=== PATIENT | female | born 1935 | race Caucasian/White ===

== ENCOUNTER 2016-11-30 04:49 | Emergency (ER) | payer BC ==
[~2016-11-30] VITALS: Ht 142.2 cm; Wt 56.4 kg
[~2016-11-30 04:49] MED LIST: BIOT1CAP3 PO; CALC-20 PO; CARV3.122 PO; CHOL20007 PO; CYAN500T13 PO; LEVO88TA PO; LISI10TA PO; MULT-513 PO; OMEG1CAP81 PO; PANT40TA PO; POTA99TA PO; PYRI100T4 PO; TRAV0.00 OPB
[2016-11-30 04:52] VITALS: TEMP 36.9; Ht 142.2 cm; Wt 56.4 kg
--- NOTE | 2016-11-30 06:00 | EMERGENCY ROOM VISIT NOTE ---
History First contact with patient: 04:59 Chief Complaint: ED VAG BLEEDING Stated Complaint: VAGINAL BLEEDING History of Present Illness The patient is a 81 year old female who presents to the Emergency Room with complaints of vaginal bleeding She woke up 2 hours ago with underwear soaked in dark red blood, although she denies any clots She says she has no concurrent abdominal pain or cramping. She denies trauma to the area and says she has not had penetration in years She has had intermittent cramping for the last few months. An ultrasound done in May 2016 showed endometrial thickening, as per patient She has had no bleeding or spotting since end of menopause. Two days ago, she read that aspirin was recommended for everyone great than 50 years of age, so commenced taking baby aspirin 81mg yesterday. She is not on any other anti-platelet/anti-coagulant medication: Was on Xarelto for 2 separate 3-month periods (for DVT), but this was last taken more than 6months ago She has been having altered bowel movements - constipation altered with soft stools for the last 2-3 weeks, but denies melena or solange red blood in stool No UTI symptoms although sometimes she has some urinary retention. No hematuria Patient is thalassemia minor (baseline hemoglobin ~9-10) No history of gyne issues: no fibroids, no endometriosis, cysts No breast, ovarian, uterine cancer history in self or family Last colonoscopy was 11 years ago. Colorectal resection with colostomy bag in situ for the last 6 years. Endoscopy performed 2 weeks ago - was normal Doppler U/S of both legs performed 2 weeks because of leg swelling - negative for further clots Review of Systems See HPI for pertinent positives and negatives. A total of ten systems were reviewed and were otherwise negative. 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 Family History Cancer FH: HTN (hypertension) FH: diabetes mellitus FH: heart disease FH: lung disease Social History Smoking Status: Never Smoker Alcohol Use: none Drug Use: none Marital Status: Occupation Status: retired Current/Historical Medications Scheduled Biotin (Biotin), 5,000 MCG PO DAILY Calcium Carbonate-Vitamin D (Calcium 600 + D), 1 TABS PO DAILY Carvedilol (Coreg), 3.125 MG PO BID Cholecalciferol (Vitamin D3), 2,000 UNIT PO DAILY Cyanocobalamin (Vitamin B12 500MCG), 1,500 MCG PO DAILY Levothyroxine Sodium (Synthroid), 88 MCG PO DAILY Lisinopril (Prinivil), 10 MG PO BID Multivitamins/Minerals (Mvi With Minerals), 1 TAB PO DAILY Pantoprazole (Protonix), 40 MG PO DAILY Potassium (Potassium), 99 MG PO DAILY Pyridoxine (Vitamin B6), 100 MG PO DAILY Travoprost (Travatan Z), 1 DROP OPB HS Allergies Coded Allergies: No Known Allergies (Verified , 06/01/16) Physical Exam Vital Signs Date Time Temp Pulse Resp B/P Pulse Ox O2 Delivery O2 Flow Rate FiO2 11/30/16 06:35 97 18 174/69 96 Room Air 11/30/16 04:52 36.9 108 18 194/82 95 Room Air Physical Exam GENERAL: alert, well appearing, thin, sitting in bed, no acute distress, non- toxic HEAD: Normocephalic, atraumatic. No sinus tenderness. EYES: PERRL, EOMI, normal conjunctiva OROPHARYNX: no exudate, no erythema, lips, buccal mucosa, and tongue normal and mucous membranes are moist NECK: supple, no nuchal rigidity, no adenopathy, non-tender LUNGS: Clear to auscultation. Normal chest wall mechanics, good air entry. No crepitations, crackles, or wheezes HEART: no murmurs, S1 normal and S2 normal CHEST: No reproducible tenderness. ABDOMEN: abdomen soft, non-tender, normo-active bowel sounds, no masses, no rebound or guarding. PELVIC: Painful insertion of speculum. Superficial vaginal wall laceration seen near vaginal entrance and one internally. No active bleeding noted. Some brownish discharge in vaginal vault. BACK: Back is symmetrical on inspection, no deformities, no midline tenderness, no CVA tenderness. SKIN: Warm, pink, dry. No erythema, rashes, or bruising. EXTREMITIES: Grossly normal. Moving all 4 limbs, strength 5/5. No pitting edema. Calves non tender. NEURO: Alert, Ox3. No focal deficits. Normal sensorium, cranial nerves II-XII grossly intact, normal speech. PSYCH: Mood and affect appropriate. Medical Decision & Procedures ER Provider Diagnostic Interpretation: PELVIC ULTRASOUND CLINICAL HISTORY: Vaginal bleeding. COMPARISON STUDY: CT of the abdomen and pelvis June 01, 2016 and pelvic ultrasound August 01, 2016. FINDINGS: The uterus measures 8.7 x 5.2 x 5.8 cm. There is extensive complex material within the endometrial cavity. In addition, there is an associated 2.1 x 1.5 x 2 cm mass within the endometrial cavity which contains color flow. In addition, there is a moderate amount of complex fluid within the pelvis. Neither ovary was visualized. IMPRESSION: 1. Distended endometrial cavity which contains complex fluid and an associated 2.1 cm endometrial mass which is worrisome for endometrial carcinoma. However, a polyp could appear similar. Gynecologic consultation is recommended. 2. Moderate amount of complex fluid within the pelvis. This fluid is entirely nonspecific and hemoperitoneum cannot be excluded. A CT of the abdomen and pelvis could be obtained for further evaluation. 3. Nonvisualization of the ovaries. Laboratory Results 11/30/16 06:05 Red Blood Count 4.99, Mean Corpuscular Volume 60.5, Mean Corpuscular Hemoglobin 18.6, Mean Corpuscular Hemoglobin Concent 30.8, Mean Platelet Volume 9.5, Neutrophils (%) (Auto) 64.8, Lymphocytes (%) (Auto) 19.6, Monocytes (%) (Auto) 8.0, Eosinophils (%) (Auto) 6.9, Basophils (%) (Auto) 0.4, Neutrophils # (Auto) 4.53, Lymphocytes # (Auto) 1.37, Monocytes # (Auto) 0.56, Eosinophils # (Auto) 0.48, Basophils # (Auto) 0.03 11/30/16 06:05 Test 11/30/16 06:05 White Blood Count 6.99 K/uL (4.8-10.8) Red Blood Count 4.99 M/uL (4.2-5.4) Hemoglobin 9.3 g/dL (12.0-16.0) Hematocrit 30.2 % (37-47) Mean Corpuscular Volume 60.5 fL (80-100) Mean Corpuscular Hemoglobin 18.6 pg (25-34) Mean Corpuscular Hemoglobin Concent 30.8 g/dl (32-36) Platelet Count 375 K/uL (130-400) Mean Platelet Volume 9.5 fL (7.4-10.4) Neutrophils (%) (Auto) 64.8 % Lymphocytes (%) (Auto) 19.6 % Monocytes (%) (Auto) 8.0 % Eosinophils (%) (Auto) 6.9 % Basophils (%) (Auto) 0.4 % Neutrophils # (Auto) 4.53 K/uL (1.4-6.5) Lymphocytes # (Auto) 1.37 K/uL (1.2-3.4) Monocytes # (Auto) 0.56 K/uL (0.11-0.59) Eosinophils # (Auto) 0.48 K/uL (0-0.5) Basophils # (Auto) 0.03 K/uL (0-0.2) RDW Standard Deviation 32.3 fL (36.4-46.3) RDW Coefficient of Variation 14.8 % (11.5-14.5) Immature Granulocyte % (Auto) 0.3 % Immature Granulocyte # (Auto) 0.02 K/uL (0.00-0.02) Polychromasia 1+ Ovalocytes 1+ Prothrombin Time 10.3 SECONDS (9.0-12.0) Prothromb Time International Ratio 1.0 (0.9-1.1) Activated Partial Thromboplast Time 26.0 SECONDS (21.0-31.0) Partial Thromboplastin Ratio 1.0 Anion Gap 10.0 mmol/L (3-11) Est Creatinine Clear Calc Drug Dose 31.1 ml/min Estimated GFR () 63.4 Estimated GFR (Non- 54.7 BUN/Creatinine Ratio 16.3 (10-20) Calcium Level 8.8 mg/dl (8.5-10.1) Medications Administered Medications (Trade) Dose Ordered Sig/Blanquita Route Start Time Stop Time Status Last Admin Dose Admin Morphine Sulfate (MoRPHine SULFATE INJ) 2 mg NOW STAT IV 11/30/16 06:24 11/30/16 06:26 DC 11/30/16 06:41 2 MG Ondansetron HCl (Zofran Inj) 2 mg NOW STAT IV 11/30/16 06:24 11/30/16 06:26 DC 11/30/16 06:41 2 MG Medical Decision 81 year old female presented with vaginal bleeding The patient was evaluated in room B3. A complete history and physical exam was performed. Etiologies such as dysfunction uterine bleeding, bleeding dyscrasia, trauma, infection, as well as others were entertained. Lab work was performed. CBC showed anemia which was consistent with patient's baseline anemia secondary to thalassemia minor. BMP and coagulation profile were all within normal limits. A speculum exam was performed which showed some superficial vaginal lacerations but no active bleeding was noted, from either the lacerations or cervical os. A transvaginal U/S was ordered and the patient was given 2mg IV morphine and 2mg IV Zofran for symptom relief prior. The U/S reported a distended endometrial cavity containing complex fluid and an associated 2.1 cm endometrial mass, worrisome for endometrial carcinoma or possibly a polyp. It also shows a moderate amount of complex fluid (nonspecific , possibly hemoperitoneum) within the pelvis. Dr. Knight, the radiologist who read the report was called to discuss the findings and he recommended a non-contrast CT abdo/pelvis for further evaluation. The CT abdo/pelvis report is pending at this current time. Care will be handed over to ED attending Dr. Zhong. Please see his notes for ongoing care management. Departure Information Referrals Erick Stewart M.D. (PCP) Patient Instructions A Signature Page, My [facility]
[2016-11-30 06:23] LABS: BASO % 0.4 %; BASO ABS # 0.03 K/uL (0-0.2); EOS % 6.9 %; HEMATOCRIT 30.2 % (37-47); IG% 0.3 %; LYMPH % 19.6 %; LYMPH ABS # 1.37 K/uL (1.2-3.4); MEAN CELL VOLUME 60.5 fL (80-100); MEAN CORPUSCULAR HEMOGLOBIN 18.6 pg (25-34); MEAN CORPUSCULAR HGB CONC 30.8 g/dl (32-36); MEAN PLATELET VOLUME 9.5 fL (7.4-10.4); NEUT % 64.8 %; PLATELET COUNT 375 K/uL (130-400); RED BLOOD COUNT 4.99 M/uL (4.2-5.4); WHITE BLOOD COUNT 6.99 K/uL (4.8-10.8)
[2016-11-30] MEDS ORDERED: MoRPHine SULFATE 2 MG/ML CARP IV STA (06:24)
[2016-11-30] MEDS ORDERED: ONDANSETRON INJ 2 MG/ML 2 ML VIAL IV STA (06:24)
--- NOTE | 2016-11-30 06:28 | EMERGENCY ROOM VISIT NOTE ---
ED Visit Note First contact with patient: 04:59 Resident Physician Supervision Note: I interviewed and examined the patient. Discussed with Dr. Emmanuel and agree with findings and plan as documented in the note. The patient will undergo a pelvic exam to ensure that the blood is vaginal. At that time, the patient will go for a pelvic ultrasound to look at the uterus. She had a previous abdominal ultrasound approximately 7 months ago which we will use for comparison. Documented By: Maritza Conway
[2016-11-30 06:38] LABS: PROTHROMBIN TIME (PATIENT) 10.3 SECONDS (9.0-12.0)
[2016-11-30 06:45] LABS: BUN/CREATININE RATIO 16.3 (10-20); CALCIUM 8.8 mg/dl (8.5-10.1); CREATININE 0.96 mg/dl (0.60-1.20)
[2016-11-30 06:55] LABS: COMPLETE YES; OVALOCYTES 1+; POLYCHROMASIA 1+
--- NOTE | 2016-11-30 07:42 | DIAGNOSTIC IMAGING REPORT ---
PELVIC ULTRASOUND CLINICAL HISTORY: Vaginal bleeding. COMPARISON STUDY: CT of the abdomen and pelvis June 01, 2016 and pelvic ultrasound August 01, 2016. FINDINGS: The uterus measures 8.7 x 5.2 x 5.8 cm. There is extensive complex material within the endometrial cavity. In addition, there is an associated 2.1 x 1.5 x 2 cm mass within the endometrial cavity which contains color flow. In addition, there is a moderate amount of complex fluid within the pelvis. Neither ovary was visualized. IMPRESSION: 1. Distended endometrial cavity which contains complex fluid and an associated 2.1 cm endometrial mass which is worrisome for endometrial carcinoma. However, a polyp could appear similar. Gynecologic consultation is recommended. 2. Moderate amount of complex fluid within the pelvis. This fluid is entirely nonspecific and hemoperitoneum cannot be excluded. A CT of the abdomen and pelvis could be obtained for further evaluation. 3. Nonvisualization of the ovaries. Electronically signed by: Kendall Knight M.D. 11/30/2016 7:40 AM Dictated Date/Time: 11/30/2016 7:36 AM
--- NOTE | 2016-11-30 09:01 | DIAGNOSTIC IMAGING REPORT ---
CT OF THE ABDOMEN AND PELVIS WITHOUT CONTRAST CLINICAL HISTORY: Vaginal bleeding. Pelvic fluid. COMPARISON STUDY: CT of the abdomen and pelvis June 01, 2016 and pelvic ultrasound performed earlier today. TECHNIQUE: Axial images of the abdomen and pelvis were obtained without IV contrast. Images were reviewed in the axial, sagittal, and coronal planes. FINDINGS: Visualized portions of the lower chest demonstrate a trace right pleural effusion. There is a small amount of abdominal and pelvic ascites which measures just above water attenuation. A hepatic cyst is again noted. Evaluation of the abdomen and pelvis is suboptimal on this unenhanced exam. Unenhanced images of the spleen, adrenal glands, kidneys and pancreas are normal. There has- been significant progression of lymphadenopathy since CT of June 01, 2016. An index right cardiophrenic angle node measures 1.2 cm in short axis diameter. Multiple para-aortic and iliac chain lymph nodes have increased in size. An index left common iliac node measures 2.2 x 1.3 cm. Omental nodules are noted. These could reflect lymph nodes or omental implants. There is no evidence for a bowel obstruction. A left lower quadrant and colostomy with associated parastomal hernia is again noted. This contains multiple small bowel loops. There is uterine enlargement with distention of the endometrial cavity, as shown on ultrasound. In addition, there is a low-attenuation lobulated masslike abnormality posterior to the uterus and anterior to the sacrum that measures 10 x 7.8 x 2.6 cm. This measures just above water attenuation. There is no fat plane between this abnormality and the uterus. This is within the subcutaneous tissues of the medial gluteal folds. This was not present on prior CT. No suspicious osseous lesions are present. Bilateral sacral fractures and right pubic ring fractures are noted. Deformity of the sacrum or coccyx is unchanged. IMPRESSION: 1. Significant progression of endometrial thickening with a distended endometrial cavity since CT of June 01, 2016. This is better depicted on pelvic ultrasound performed earlier today. The findings suggest a neoplastic process such as endometrial carcinoma. Gynecologic consultation is recommended. 2. Progression of abdominal and pelvic lymphadenopathy which is worrisome for an spread of disease. Omental nodules raise the possibility of peritoneal spread of disease although several of these nodules may reflect lymph nodes. Small amount of abdominal and pelvic ascites which does not appear to represent hemorrhage. 3. Lobulated low-attenuation midline mass-like abnormality projecting over the medial gluteal fold, posterior to the uterus and inferior to the sacrum and coccyx. No fat plane between this abnormality and the uterus. This is new since prior CT. This finding is indeterminate and this appears to represent a complex loculated fluid collection. Although unusual, this could be related to the suspected uterine malignancy. Differential considerations include neoplastic or less likely infectious etiology. Electronically signed by: Kendall Knight M.D. 11/30/2016 8:59 AM Dictated Date/Time: 11/30/2016 8:32 AM
--- NOTE | 2016-11-30 09:51 | EMERGENCY ROOM VISIT NOTE ---
ED Visit Note First contact with patient: 07:45 81-year-old female with abdominal pain and some bleeding was fully evaluated by Dr. Emmanuel and Dr. Conway. I assumed care at change of shift. The CT and ultrasound were evaluated. Patient most likely has endometrial carcinoma. I discussed care with Dr. Kary Shepard over the phone. The patient will be further evaluated as an outpatient and most likely have a biopsy within the next week. This was discussed with the patient and 2 other family members. Impression: Vaginal Bleeding
[2016-11-30 10:13] VITALS: BP 149/71; PULSE 100; O2SAT 96
== END 2016-11-30 10:15 | disposition home or self-care (01) ==
LOC: C.EDB 04:50
DX: N93.9 Abnormal uterine and vaginal bleeding, unspecified (principal); Z85.038 Personal history of other malignant neoplasm of large intestine; Z79.899 Other long term (current) drug therapy; Z93.3 Colostomy status; Z80.9 Family history of malignant neoplasm, unspecified; Z82.49 Family history of ischemic heart disease and other diseases of the circulatory system; Z83.3 Family history of diabetes mellitus

== ENCOUNTER → 2016-12-03 | Outpatient (CLI) | payer BC ==
[~2016-12-03] MED LIST changes: -OMEG1CAP81 PO
== END | disposition home or self-care (01) ==
LOC: C.PATHSPEC 14:30
PROVIDERS: ATTEND Obstetrics & Gynecology
DX: N95.0 Postmenopausal bleeding (principal)

== ENCOUNTER → 2016-12-26 | Outpatient (CLI) | payer BC ==
--- NOTE | 2016-12-26 18:32 | DIAGNOSTIC IMAGING REPORT ---
BILATERAL LOWER EXTREMITY VENOUS DOPPLER HISTORY: Bilateral leg swelling COMPARISON STUDY: None. FINDINGS: There is normal compressibility, flow, and augmentation within the bilateral lower extremity deep venous systems. IMPRESSION: No DVT within the right or left lower extremity. Electronically signed by: Angel Noyola M.D. 12/26/2016 6:30 PM Dictated Date/Time: 12/26/2016 6:30 PM
[2016-12-26 18:45] LABS: BASO % 0.5 %; BASO ABS # 0.03 K/uL (0-0.2); EOS % 5.1 %; HEMATOCRIT 30.4 % (37-47); IG% 0.2 %; LYMPH % 23.4 %; MEAN CELL VOLUME 58.9 fL (80-100); MEAN CORPUSCULAR HEMOGLOBIN 18.4 pg (25-34); MEAN CORPUSCULAR HGB CONC 31.3 g/dl (32-36); MEAN PLATELET VOLUME 9.3 fL (7.4-10.4); MONO % 10.3 %; NEUT % 60.5 %; PLATELET COUNT 394 K/uL (130-400); RED BLOOD COUNT 5.16 M/uL (4.2-5.4); WHITE BLOOD COUNT 6.41 K/uL (4.8-10.8)
[2016-12-26 19:12] LABS: ALT/SGPT 14 U/L (12-78); AMYLASE 74 U/L (25-115); BLOOD UREA NITROGEN 20 mg/dl (7-18); BUN/CREATININE RATIO 17.8 (10-20); CALCIUM 8.4 mg/dl (8.5-10.1); CARBON DIOXIDE 23 mmol/L (21-32); CHLORIDE 105 mmol/L (98-107); GLUCOSE 99 mg/dl (70-99); POTASSIUM 3.8 mmol/L (3.5-5.1); SODIUM 139 mmol/L (136-145)
[2016-12-26 19:15] LABS: ALB/GLOB RATIO 0.6 (0.9-2); ALKALINE PHOSPHATASE 92 U/L (45-117); AST/SGOT 14 U/L (15-37)
[2016-12-26 20:26] LABS: COMPLETE YES; HYPOCHROMIA PRESENT; MICROCYTOSIS PRESENT
--- NOTE | 2016-12-30 12:54 | CODING QUERY MEDICAL NECESSITY ---
SUPPORTING DIAGNOSIS NEEDED A supporting diagnosis is required for the test/procedure performed on this patient in order for us to be reimbursed by the patient's insurance. Please provide a supporting diagnosis for the following test/procedure listed below next to the test name along with your signature. *If there is no additional diagnosis for this patient that would support the following test/procedure please document that below next to the test/procedure. Test(s)/Procedure(s) that require a supporting diagnosis: * VENOUS DOPPLER LOWER EXTREMITY DIAGNOSIS: * DOS: 12/26/16 Provider Signature: Date: Thank you [facility] Information Management Once completed, please kindly fax back to [phone] For questions please call [phone]
== END | disposition home or self-care (01) ==
LOC: C.ULTR 17:53
PROVIDERS: ATTEND Family Medicine
DX: R10.9 Unspecified abdominal pain (principal); M79.89 Other specified soft tissue disorders

== ENCOUNTER → 2016-12-27 | Outpatient (CLI) | payer BC ==
--- NOTE | 2016-12-27 09:01 | DIAGNOSTIC IMAGING REPORT ---
ABDOMINAL ULTRASOUND, RIGHT UPPER QUADRANT HISTORY: Right upper quadrant abdominal pain.. COMPARISON: Abdominal ultrasound 10/03/2016. Abdomen and pelvis CT 11/30/2016. FINDINGS: Pancreas: Obscured by overlying bowel gas. Liver: No hepatic masses or intrapelvic bile duct dilatation. The right hepatic dome hypodense lesion seen on the prior study was not clearly identified. Perihepatic ascites persists. Gallbladder: Gallbladder wall top normal in thickness. No gallstones. CBD: 5 mm. Right kidney: No hydronephrosis. IMPRESSION: 1. Gallbladder wall is top normal in thickness. No gallstones. 2. Persistent perihepatic ascites. Electronically signed by: Angel Noyola M.D. 12/27/2016 9:00 AM Dictated Date/Time: 12/27/2016 8:57 AM
== END | disposition home or self-care (01) ==
LOC: C.ULTR 08:24
PROVIDERS: ATTEND Family Medicine
DX: R10.11 Right upper quadrant pain (principal); R18.8 Other ascites

== ENCOUNTER → 2017-01-01 | Outpatient (CLI) | payer BC | END | disposition home or self-care (01) | LOC: C.LAB 12:08 | PROVIDERS: ATTEND Internal Medicine Hematology | DX: C20 Malignant neoplasm of rectum (principal); C55 Malignant neoplasm of uterus, part unspecified ==

== ENCOUNTER → 2017-01-15 | Outpatient (CLI) | payer BC ==
[2017-01-15 17:49] LABS: BLOOD UREA NITROGEN 18 mg/dl (7-18); BUN/CREATININE RATIO 16.8 (10-20)
== END | disposition home or self-care (01) ==
LOC: C.LABBC 14:44
PROVIDERS: ATTEND Urology
DX: R33.9 Retention of urine, unspecified (principal)

== ENCOUNTER 2017-01-19 15:30 | Inpatient (IN) | payer BC, OTHER ==
[~2017-01-19] VITALS: Ht 142.2 cm; Wt 56.5 kg
[2017-01-19] MEDS ORDERED: SODIUM CHLORIDE 0.9% 1000ML 1,000 ML IV STA (16:32)
[2017-01-19] MEDS ORDERED: SODIUM CHLORIDE 0.9% 500ML 500 ML IV STA (17:10)
[2017-01-19 17:34] LABS: BASO % 0.3 %; BASO ABS # 0.02 K/uL (0-0.2); EOS % 0.9 %; HEMATOCRIT 29.5 % (37-47); IG% 0.3 %; LYMPH % 18.3 %; LYMPH ABS # 1.24 K/uL (1.2-3.4); MEAN CELL VOLUME 56.6 fL (80-100); MEAN CORPUSCULAR HGB CONC 31.9 g/dl (32-36); MEAN PLATELET VOLUME 8.9 fL (7.4-10.4); MONO % 7.8 %; NEUT % 72.4 %; PLATELET COUNT 465 K/uL (130-400); RED BLOOD COUNT 5.21 M/uL (4.2-5.4); WHITE BLOOD COUNT 6.76 K/uL (4.8-10.8)
[2017-01-19 17:44] LABS: PROTHROMBIN TIME (PATIENT) 11.1 SECONDS (9.0-12.0)
[2017-01-19 17:50] LABS: ALT/SGPT 12 U/L (12-78); AST/SGOT 16 U/L (15-37); BLOOD UREA NITROGEN 12 mg/dl (7-18); BUN/CREATININE RATIO 12.7 (10-20); CALCIUM 8.2 mg/dl (8.5-10.1); CARBON DIOXIDE 26 mmol/L (21-32); CHLORIDE 102 mmol/L (98-107); CREATININE 0.94 mg/dl (0.60-1.20); GLUCOSE 102 mg/dl (70-99); MAGNESIUM 1.8 mg/dl (1.8-2.4); POTASSIUM 3.8 mmol/L (3.5-5.1); SODIUM 138 mmol/L (136-145)
[2017-01-19 18:01] LABS: ALKALINE PHOSPHATASE 85 U/L (45-117)
--- NOTE | 2017-01-19 18:22 | DIAGNOSTIC IMAGING REPORT ---
CT OF THE ABDOMEN AND PELVIS WITHOUT CONTRAST CLINICAL HISTORY: Diffuse abdominal pain and vomiting. COMPARISON STUDY: CT of the abdomen and pelvis November 30, 2016. TECHNIQUE: Axial images of the abdomen and pelvis were obtained without IV contrast. Images were reviewed in the axial, sagittal, and coronal planes. FINDINGS: Visualized portions of the lower chest demonstrate increase in size of a moderate right pleural effusion. There is a small left pleural effusion. There are mildly enlarged bilateral internal mammary chain lymph nodes. Several cardiophrenic angle nodes have mildly increased in size since exam of November 30, 2016. A right hepatic lobe cyst is again noted. Evaluation of the abdomen and pelvis is suboptimal on this unenhanced exam. There is no pneumatosis, free air or portal venous gas. A moderate amount of ascites has increased since exam of April. Unenhanced images of the spleen, adrenal glands, kidneys and pancreas are unremarkable. There is no hydronephrosis. Multiple enlarged retroperitoneal lymph nodes have mildly increased in size since prior exam. An index left common iliac node measures 2.4 x 1.4 cm. This node previously measured 2.2 x 1.3 cm. A few mildly enlarged left a little lymph nodes have increased in size. A hypodense masslike abnormality posterior to the uterus and inferior to the sacrum and coccyx has increased in size since prior exam. This now measures approximately 8.4 x 5.6 cm. Endometrial thickening shown on prior exam is less conspicuous on this examination. There is mild small bowel dilatation. A left lower quadrant parastomal hernia containing ascites and bowel is noted but this does not result in the bowel dilatation. The findings suggest a partial small bowel obstruction. Peritoneal nodularity has increased since prior examination of November 30, 2016. Fractures of the bilateral sacral ala and right pubic ring are noted IMPRESSION: 1. Findings suggestive of progressive metastatic disease within the abdomen and pelvis, including peritoneal carcinomatosis and progression of lymphadenopathy since prior exam of April. Small to moderate ascites, increased since prior exam. 2. Mild dilatation of the proximal to mid small bowel. A definite transition point is not identified although the findings suggest a partial small bowel obstruction. 3. Moderate right and small left pleural effusions, increased since prior exam. 4. Increase in size of the hypodense mass-like abnormality, located inferior to the sacrum and coccyx and posterior to the uterus since prior CT. This finding is indeterminate although may reflect a neoplastic process. A fluid collection could appear similar. 5. Suboptimal evaluation of the abdomen and pelvis given the lack of IV and oral contrast. 6. Left lower quadrant parastomal hernia which does not result in the bowel obstruction. Electronically signed by: Kendall Knight M.D. 01/19/2017 6:21 PM Dictated Date/Time: 01/19/2017 6:04 PM
[2017-01-19 18:23] LABS: COMPLETE YES; HYPOCHROMIA PRESENT; MICROCYTOSIS PRESENT; OVALOCYTES 1+; POIKILOCYTOSIS PRESENT; POLYCHROMASIA 1+; SCHISTOCYTES OCCASIONAL
--- NOTE | 2017-01-19 18:24 | DIAGNOSTIC IMAGING REPORT ---
LEFT LOWER EXTREMITY VENOUS DOPPLER CLINICAL HISTORY: Left lower leg swelling. COMPARISON STUDY: Bilateral lower extremity venous Doppler December 26, 2016 TECHNIQUE: Sonography of the deep venous system of the left lower extremity was performed. Compression and augmentation were evaluated. FINDINGS: There is nonocclusive thrombus within the left common femoral vein as well as the left profunda vein. This was not evident on prior exam. No additional sites of deep venous thrombus were identified within the left lower extremity. Left lower extremity edema was noted. 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 Electronically signed by: Kendall Knight M.D. 01/19/2017 6:23 PM Dictated Date/Time: 01/19/2017 6:21 PM
[2017-01-19] MEDS ORDERED: ONDANSETRON 8 MG/54 ML D5W IV STA (18:35)
[2017-01-19 19:22] LABS: URINE APPEARANCE CLOUDY (CLEAR); URINE BILIRUBIN NEG (NEG); URINE COLOR YELLOW; URINE NITRITE NEG (NEG); URINE SPECIFIC GRAVITY 1.011 (1.000-1.030); UROBILINOGEN NEG (NEG)
[2017-01-19 19:23] LABS: MANUAL MICROSCOPIC REQUIRED? NO; REVIEW REQ? NO
--- NOTE | 2017-01-19 19:44 | EMERGENCY ROOM VISIT NOTE ---
History Report prepared by Raghavendra: Alecia Cortez Under the Supervision of: Dr. Elmer Dubon M.D. First contact with patient: 16:32 Chief Complaint: ABDOMINAL PAIN Stated Complaint: ABD PAIN,VOMITING Nursing Triage Summary: Abdominal pain, nausea, recent dx of uterine Ca per daughter. History of Present Illness The patient is a 81 year old female who presents to the Emergency Room with complaints of worsening intermittent abdominal pain beginning at 5am this morning. She rates her pain currently as a 3/10 in severity. The patient was recently diagnosed with uterine cancer. She notes that she has been experiencing abdominal pain for the past 2 months. The patient has also been experiencing decreased eating, nausea and shortness of breath. Pt denies LOC, headache, fevers, chills, diaphoresis, visual changes, neck pain, chest pain, breathing difficulties, vomiting, back pain, melena, hematochezia, urinary symptoms, numbness, weakness, lymphadenopathy, rash, or other complaints. Source of History: patient Onset: 5am this morning Position: abdomen Symptom Intensity: 3/10 Timing: intermittent, worsening Associated Symptoms: + SOB, + nausea Note: Patient is experiencing decreased appetite. Review of Systems See HPI for pertinent positives and negatives. A total of ten systems were reviewed and were otherwise negative. 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 Family History Cancer FH: HTN (hypertension) FH: diabetes mellitus FH: heart disease FH: lung disease Social History Smoking Status: Never Smoker Alcohol Use: none Drug Use: none Marital Status: Occupation Status: retired Current/Historical Medications Scheduled Biotin (Biotin), 5,000 MCG PO DAILY Calcium Carbonate-Vitamin D (Calcium 600 + D), 1 TABS PO DAILY Carvedilol (Coreg), 3.125 MG PO BID Cholecalciferol (Vitamin D3), 2,000 UNIT PO DAILY Cyanocobalamin (Vitamin B12 500MCG), 1,500 MCG PO DAILY Levothyroxine Sodium (Synthroid), 88 MCG PO DAILY Pantoprazole (Protonix), 40 MG PO DAILY Potassium (Potassium), 99 MG PO DAILY Pyridoxine (Vitamin B6), 100 MG PO DAILY Travoprost (Travatan Z), 1 DROP OPB HS Allergies Coded Allergies: No Known Allergies (Verified , 01/19/17) Physical Exam Vital Signs Date Time Temp Pulse Resp B/P Pulse Ox O2 Delivery O2 Flow Rate FiO2 01/19/17 22:39 87 01/19/17 21:05 93 20 166/97 93 Room Air 01/19/17 18:23 94 20 165/87 95 Room Air 01/19/17 17:20 93 01/19/17 17:15 Room Air 01/19/17 15:42 36.9 104 20 151/78 94 Room Air Physical Exam GENERAL: Awake, alert, tired appearing, in no distress HENT: Normocephalic, atraumatic. Oropharynx unremarkable. EYES: Normal conjunctiva. Sclera non-icteric. NECK: Supple. No nuchal rigidity. FROM. No JVD. RESPIRATORY: Clear to auscultation. CARDIAC: Borderline tachycardic rate, normal rhythm. Extremities warm and well perfused. Pulses equal. ABDOMEN: Soft, non-distended. No tenderness to palpation. No rebound or guarding. No masses. RECTAL: Deferred. MUSCULOSKELETAL: Chest examination reveals no tenderness. The back is symmetrical on inspection without obvious abnormality. There is no CVA tenderness to palpation. No joint edema. LOWER EXTREMITIES: Calves are equal size bilaterally and non-tender. 2+ edema. No discoloration. NEURO: Normal sensorium. No sensory or motor deficits noted. SKIN: No rash or jaundice noted. Medical Decision & Procedures ER Provider Diagnostic Interpretation: Radiology results as stated below per my review and radiologist interpretation CT OF THE ABDOMEN AND PELVIS WITHOUT CONTRAST CLINICAL HISTORY: Diffuse abdominal pain and vomiting. COMPARISON STUDY: CT of the abdomen and pelvis November 30, 2016. TECHNIQUE: Axial images of the abdomen and pelvis were obtained without IV contrast. Images were reviewed in the axial, sagittal, and coronal planes. FINDINGS: Visualized portions of the lower chest demonstrate increase in size of a moderate right pleural effusion. There is a small left pleural effusion. There are mildly enlarged bilateral internal mammary chain lymph nodes. Several cardiophrenic angle nodes have mildly increased in size since exam of November 30, 2016. A right hepatic lobe cyst is again noted. Evaluation of the abdomen and pelvis is suboptimal on this unenhanced exam. There is no pneumatosis, free air or portal venous gas. A moderate amount of ascites has increased since exam of April. Unenhanced images of the spleen, adrenal glands, kidneys and pancreas are unremarkable. There is no hydronephrosis. Multiple enlarged retroperitoneal lymph nodes have mildly increased in size since prior exam. An index left common iliac node measures 2.4 x 1.4 cm. This node previously measured 2.2 x 1.3 cm. A few mildly enlarged left a little lymph nodes have increased in size. A hypodense masslike abnormality posterior to the uterus and inferior to the sacrum and coccyx has increased in size since prior exam. This now measures approximately 8.4 x 5.6 cm. Endometrial thickening shown on prior exam is less conspicuous on this examination. There is mild small bowel dilatation. A left lower quadrant parastomal hernia containing ascites and bowel is noted but this does not result in the bowel dilatation. The findings suggest a partial small bowel obstruction. Peritoneal nodularity has increased since prior examination of November 30, 2016. Fractures of the bilateral sacral ala and right pubic ring are noted IMPRESSION: 1. Findings suggestive of progressive metastatic disease within the abdomen and pelvis, including peritoneal carcinomatosis and progression of lymphadenopathy since prior exam of April. Small to moderate ascites, increased since prior exam. 2. Mild dilatation of the proximal to mid small bowel. A definite transition point is not identified although the findings suggest a partial small bowel obstruction. 3. Moderate right and small left pleural effusions, increased since prior exam. 4. Increase in size of the hypodense mass-like abnormality, located inferior to the sacrum and coccyx and posterior to the uterus since prior CT. This finding is indeterminate although may reflect a neoplastic process. A fluid collection could appear similar. 5. Suboptimal evaluation of the abdomen and pelvis given the lack of IV and oral contrast. 6. Left lower quadrant parastomal hernia which does not result in the bowel obstruction. Electronically signed by: Kendall Knight M.D. 01/19/2017 6:21 PM Dictated Date/Time: 01/19/2017 6:04 PM LEFT LOWER EXTREMITY VENOUS DOPPLER CLINICAL HISTORY: Left lower leg swelling. COMPARISON STUDY: Bilateral lower extremity venous Doppler December 26, 2016 TECHNIQUE: Sonography of the deep venous system of the left lower extremity was performed. Compression and augmentation were evaluated. FINDINGS: There is nonocclusive thrombus within the left common femoral vein as well as the left profunda vein. This was not evident on prior exam. No additional sites of deep venous thrombus were identified within the left lower extremity. Left lower extremity edema was noted. 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 Electronically signed by: Kendall Knight M.D. 01/19/2017 6:23 PM Dictated Date/Time: 01/19/2017 6:21 PM Laboratory Results 01/19/17 17:15 Red Blood Count 5.21, Mean Corpuscular Volume 56.6, Mean Corpuscular Hemoglobin 18.0, Mean Corpuscular Hemoglobin Concent 31.9, Mean Platelet Volume 8.9, Neutrophils (%) (Auto) 72.4, Lymphocytes (%) (Auto) 18.3, Monocytes (%) (Auto) 7.8, Eosinophils (%) (Auto) 0.9, Basophils (%) (Auto) 0.3, Neutrophils # (Auto) 4.89, Lymphocytes # (Auto) 1.24, Monocytes # (Auto) 0.53, Eosinophils # (Auto) 0.06, Basophils # (Auto) 0.02 01/19/17 17:15 Test 01/19/17 17:15 01/19/17 19:09 White Blood Count 6.76 K/uL (4.8-10.8) Red Blood Count 5.21 M/uL (4.2-5.4) Hemoglobin 9.4 g/dL (12.0-16.0) Hematocrit 29.5 % (37-47) Mean Corpuscular Volume 56.6 fL (80-100) Mean Corpuscular Hemoglobin 18.0 pg (25-34) Mean Corpuscular Hemoglobin Concent 31.9 g/dl (32-36) Platelet Count 465 K/uL (130-400) Mean Platelet Volume 8.9 fL (7.4-10.4) Neutrophils (%) (Auto) 72.4 % Lymphocytes (%) (Auto) 18.3 % Monocytes (%) (Auto) 7.8 % Eosinophils (%) (Auto) 0.9 % Basophils (%) (Auto) 0.3 % Neutrophils # (Auto) 4.89 K/uL (1.4-6.5) Lymphocytes # (Auto) 1.24 K/uL (1.2-3.4) Monocytes # (Auto) 0.53 K/uL (0.11-0.59) Eosinophils # (Auto) 0.06 K/uL (0-0.5) Basophils # (Auto) 0.02 K/uL (0-0.2) RDW Standard Deviation 32.2 fL (36.4-46.3) RDW Coefficient of Variation 15.8 % (11.5-14.5) Immature Granulocyte % (Auto) 0.3 % Immature Granulocyte # (Auto) 0.02 K/uL (0.00-0.02) Polychromasia 1+ Hypochromasia PRESENT Poikilocytosis PRESENT Microcytosis PRESENT Ovalocytes 1+ Schistocytes OCCASIONAL Prothrombin Time 11.1 SECONDS (9.0-12.0) Prothromb Time International Ratio 1.0 (0.9-1.1) Activated Partial Thromboplast Time 25.7 SECONDS (21.0-31.0) Partial Thromboplastin Ratio 1.0 Anion Gap 10.0 mmol/L (3-11) Est Creatinine Clear Calc Drug Dose 31.8 ml/min Estimated GFR () 65.0 Estimated GFR (Non- 56.1 BUN/Creatinine Ratio 12.7 (10-20) Calcium Level 8.2 mg/dl (8.5-10.1) Magnesium Level 1.8 mg/dl (1.8-2.4) Total Bilirubin 0.5 mg/dl (0.2-1) Direct Bilirubin 0.2 mg/dl (0-0.2) Aspartate Amino Transf (AST/SGOT) 16 U/L (15-37) Alanine Aminotransferase (ALT/SGPT) 12 U/L (12-78) Alkaline Phosphatase 85 U/L (45-117) Troponin I < 0.015 ng/ml (0-0.045) Total Protein 7.2 gm/dl (6.4-8.2) Albumin 2.5 gm/dl (3.4-5.0) Lipase 157 U/L (73-393) Thyroid Stimulating Hormone (TSH) 6.210 uIu/ml (0.300-4.500) Urine Color YELLOW Urine Appearance CLOUDY (CLEAR) Urine pH 5.0 (4.5-7.5) Urine Specific [place] 1.011 (1.000-1.030) Urine Protein NEG (NEG) Urine Glucose (UA) NEG (NEG) Urine Ketones NEG (NEG) Urine Occult Blood NEG (NEG) Urine Nitrite NEG (NEG) Urine Bilirubin NEG (NEG) Urine Urobilinogen NEG (NEG) Urine Leukocyte Esterase NEG (NEG) Urine WBC (Auto) 1-5 /hpf (0-5) Urine RBC (Auto) 0-4 /hpf (0-4) Urine Hyaline Casts (Auto) 1-5 /lpf (0-5) Urine Epithelial Cells (Auto) 10-20 /lpf (0-5) Urine Bacteria (Auto) NEG (NEG) Laboratory results reviewed by me Medications Administered Medications (Trade) Dose Ordered Sig/Blanquita Route Start Time Stop Time Status Last Admin Dose Admin Sodium Chloride 1,000 ml @ 125 mls/hr Q8H STAT IV 01/19/17 16:32 01/20/17 00:31 01/19/17 18:03 125 MLS/HR Sodium Chloride (Nss 500ml) 500 ml @ 999 mls/hr Q31M STAT IV 01/19/17 17:10 01/19/17 17:40 DC 01/19/17 18:04 999 MLS/HR Ondansetron HCl 8 mg 8 mg NOW STAT IV 01/19/17 18:35 01/19/17 18:37 DC 01/19/17 18:42 8 MG Promethazine HCl/ Sodium Chloride (Phenergan Inj/ Nss 50ml) 50.5 ml @ 202 mls/hr Q4H PRN IV 01/19/17 20:00 02/18/17 19:59 01/19/17 21:01 202 MLS/HR Heparin Sodium/ Dextrose (Heparin 25,000 Unit/500ml D5W) 25,000 unit STK-MED ONCE .ROUTE 01/19/17 20:18 01/19/17 20:20 DC 01/19/17 20:25 25,000 UNIT ECG Indication: abdominal pain Rate (beats per minute): 97 Rhythm: normal sinus Findings: no acute ischemic change, no ectopy ED Course 1632: Sodium Chloride 1,000 ml @ 125 mls/hr IV. 1702: The patient was evaluated in room C8. A complete history and physical exam was performed. 1710: Sodium Chloride 500 ml @ 999 mls/hr IV. 1835: Zofran 8mg IV. 1922: Discussed the patient's case with Dr. Giles Amador [place]. The patient will be evaluated for further treatment and disposition. 1924: Upon reexamination, the patient was hemodynamically stable. I discussed the test results and treatment plan with Dr. Giles ANDERSON. The patient will be evaluated for further management.m Medical Decision Triage Nursing notes reviewed. The patient's presentation and history were concerning for abdominal pain and cancer. Etiologies such as appendicitis, diverticulitis, obstruction, inflammatory bowel disease, renal colic, PUD, biliary pathology, pancreatitis, mesenteric ischemia, aortic pathology, infections, genitourinary, UTI, perforated viscus, as well as others were entertained. The patient was evaluated. She was mildly distended nontender abdomen. She also has her colostomy has decreased output. Patient had left leg swelling. She underwent blood work, saline hydration, Zofran, and CT imaging. She also had an ultrasound. Patient had a mild anemia on CBC. Urinalysis is unremarkable. Troponin and chemistries were unremarkable was concerning for partial bowel obstruction with carcinomatosis. The patient also had a DVT in the left leg. Internal medicine was consulted. She was evaluated by Dr. Song. He will direct anticoagulation. He also ordered a chest CT. Patient was informed. Family was updated. The patient was admitted for further treatment. The chart was completed utilizing [employer] Speech voice recognition software. Grammatical errors, random word insertions, pronoun errors, and incomplete sentences are an occasional consequence of this system due to software limitations, ambient noise, and hardware issues. Any formal questions or concerns about the content, text, or information contained within the body of this dictation should be directly addressed to the physician for clarification. Consults Time Called: 1920 Consulting Physician: Dr. Giles ANDERSON Returned Call: 1922 Discussed the patient's case. The patient will be evaluated for further treatment and disposition. Impression Primary Impression: Partial bowel obstruction Additional Impressions: progression of cancer Left leg DVT Scribe Attestation The scribe's documentation has been prepared under my direction and personally reviewed by me in its entirety. I confirm that the note above accurately reflects all work, treatment, procedures, and medical decision making performed by me. Departure Information Dispostion Being Evaluated By Hospitalist Referrals Erick Stewart M.D. (PCP) Problem Qualifiers
[2017-01-19] MEDS ORDERED: ZOLPIDEM TARTRATE 5 MG TAB PO PRN (20:00)
[2017-01-19] MEDS ORDERED: DiphenhydrAMINE HCL 50 MG/ML VIAL IV PRN (20:00)
[2017-01-19] MEDS ORDERED: ONDANSETRON INJ 2 MG/ML 2 ML VIAL IV PRN ×2 (20:00)
[2017-01-19] MEDS ORDERED: MoRPHine SULFATE 4 MG/ML 1 ML CARP\\VIAL IV PRN (20:00)
[2017-01-19] MEDS ORDERED: LORAZEPAM 2 MG/ML 1 ML VIAL IV PRN (20:00)
[2017-01-19] MEDS ORDERED: MoRPHine SULFATE 2 MG/ML CARP IV PRN (20:00)
[2017-01-19] MEDS ORDERED: OPTIRAY 320 IV PRN (20:00)
[2017-01-19] MEDS ORDERED: HEPARIN IV LOW DOSE NO BOLUS STA (20:01)
[2017-01-19] MEDS ORDERED: HEPARIN 25000 UNIT/500 ML D5W ONE (20:18)
[2017-01-19] MEDS: PROMETHAZINE HCL INJ 12.5 MG in SODIUM CHLORIDE 0.9% 50ML 50 ML IV PRN (21:01)
--- NOTE | 2017-01-19 21:38 | DIAGNOSTIC IMAGING REPORT ---
CT ANGIOGRAPHY OF THE CHEST, PULMONARY EMBOLUS PROTOCOL CLINICAL HISTORY: Shortness of breath. Deep venous thrombus. COMPARISON STUDY: Chest CT September 10, 2015. TECHNIQUE: Following IV administration of 81 mL of [id number], helical axial images of the chest were obtained utilizing the pulmonary embolus protocol. Maximal intensity projections and sagittal and coronal reformats were viewed on an independent 3D workstation. IV contrast was administered without complication. CT DOSE: 316.35 mGy.cm FINDINGS: There are several segmental pulmonary emboli within the left lower lobe. No central pulmonary embolus is present. The heart is mildly enlarged. There is extensive coronary artery calcification. Small left and moderate sized right pleural effusions are present. There is extensive right lower lobe airspace opacity with volume loss which likely reflects compressive atelectasis. Groundglass opacities are noted within the lungs. There is no pneumothorax. Several enlarged cardiophrenic angle nodes are again noted. Findings suggestive of peritoneal carcinomatosis are better depicted on head CT performed earlier today. Moderate abdominal ascites is noted. IMPRESSION: 1. Several segmental pulmonary emboli within the left lower lobe. 2. Moderate right and small left pleural effusions. Extensive right lower lobe airspace opacity with volume loss suggests compressive atelectasis. 3. Moderate abdominal ascites. Findings suggestive of peritoneal carcinomatosis and upper abdominal lymphadenopathy, better depicted on CT performed earlier today. Electronically signed by: Kendall Knight M.D. 01/19/2017 9:37 PM Dictated Date/Time: 01/19/2017 9:27 PM
[2017-01-19] MEDS ORDERED: HEPARIN 25,000 UNIT/500ML D5W 500 ML IV PRN (22:00)
[2017-01-19 23:42] VITALS: BP 169/78; PULSE 81; TEMP 37; O2SAT 92
[2017-01-19] MEDS ORDERED: LORAZEPAM INJ 0.5 MG in SYRINGE 0.75 ML IV PRN (23:45)
[2017-01-19] MEDS: HEPARIN 25,000 UNIT/500ML D5W 500 ML IV PRN (23:54)
[2017-01-20] VITALS: Ht 142.2 cm; Wt 56.5 kg
[2017-01-20] MEDS: TRAVOPROST Z 0.004% OPH SOLN 2.5 ML BTL OPB SCH ×2 (00:28→21:15)
[2017-01-20] MEDS: CARVEDILOL 3.125 MG TAB PO SCH ×3 (00:28→21:15)
[2017-01-20 01:28] VITALS: BP 138/76; PULSE 78
[2017-01-20 02:44] LABS: BASO % 0.4 %; BASO ABS # 0.02 K/uL (0-0.2); EOS % 1.6 %; HEMATOCRIT 25.8 % (37-47); IG% 0.2 %; LYMPH % 23.7 %; LYMPH ABS # 1.18 K/uL (1.2-3.4); MEAN CELL VOLUME 56.6 fL (80-100); MEAN CORPUSCULAR HEMOGLOBIN 17.3 pg (25-34); MEAN CORPUSCULAR HGB CONC 30.6 g/dl (32-36); MEAN PLATELET VOLUME 8.9 fL (7.4-10.4); MONO % 10.6 %; NEUT % 63.5 %; PLATELET COUNT 391 K/uL (130-400); RED BLOOD COUNT 4.56 M/uL (4.2-5.4); WHITE BLOOD COUNT 4.98 K/uL (4.8-10.8)
[2017-01-20 02:59] LABS: BUN/CREATININE RATIO 13.3 (10-20); CALCIUM 7.6 mg/dl (8.5-10.1); CREATININE 0.93 mg/dl (0.60-1.20); MAGNESIUM 1.8 mg/dl (1.8-2.4); POTASSIUM 3.7 mmol/L (3.5-5.1)
[2017-01-20 03:00] LABS: PARTIAL THROMBOPLASTIN RATIO 1.2; PROTHROMBIN TIME (PATIENT) 11.2 SECONDS (9.0-12.0)
[2017-01-20 03:05] LABS: COMPLETE YES; MICROCYTOSIS PRESENT; OVALOCYTES 1+
[2017-01-20] MEDS ORDERED: HEPARIN IV BOLUS 3,000 UNIT in SYRINGE 0 ML IV STA (03:21)
[2017-01-20] MEDS: HEPARIN 25,000 UNIT/500ML D5W 500 ML IV PRN ×5 (03:26→19:03)
[2017-01-20 04:11] LABS: HEMATOCRIT 26.4 % (37-47)
[2017-01-20] MEDS: LACTATED RINGER'S 1000ML 1,000 ML IV SCH ×2 (06:18→16:14)
--- NOTE | 2017-01-20 06:35 | History and Physical ---
History & Physical Date & Time of Service: Jan 20, 2017 at 06:16 Chief Complaint: Left Leg Dvt, Partial Bowel Obstruction Primary Care Physician: Erick Stewart M.D. History of Present Illness Source: patient, family, spouse The patient is an 81-year-old female who presents emergency department with worsening abdominal pain that began about 5 AM this morning she was recently diagnosed with uterine cancer and is being assessed by physicians at [facility] for possible surgery. She has a history of colon cancer and has an ostomy. She has had decreased appetite, nausea and shortness of breath. 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 Family History Cancer FH: HTN (hypertension) FH: diabetes mellitus FH: heart disease FH: lung disease Social History Smoking Status: Never Smoker Smokeless Tobacco Use: No Alcohol Use: none Drug Use: none Marital Status: Housing status: lives with family Occupational Status: retired Immunizations History of Influenza Vaccine: Unknown History of Tetanus Vaccine?: Unknown History of Pneumococcal: Unknown History of Hepatitis B Vaccine: Unknown Multi-Drug Resistant Organisms History of MDRO: No Allergies Coded Allergies: No Known Allergies (Verified , 01/19/17) Home Medications Scheduled Biotin (Biotin), 5,000 MCG PO DAILY Calcium Carbonate-Vitamin D (Calcium 600 + D), 1 TABS PO DAILY Carvedilol (Coreg), 3.125 MG PO BID Cholecalciferol (Vitamin D3), 2,000 UNIT PO DAILY Cyanocobalamin (Vitamin B12 500MCG), 1,500 MCG PO DAILY Levothyroxine Sodium (Synthroid), 88 MCG PO DAILY Pantoprazole (Protonix), 40 MG PO DAILY Potassium (Potassium), 99 MG PO DAILY Pyridoxine (Vitamin B6), 100 MG PO DAILY Travoprost (Travatan Z), 1 DROP OPB HS Review of Systems The patient denies chest pain, palpitations, cough, lower extremity swelling, vision change, hearing change, sore throat, fevers, chills, sweats, blood in urine or stool, dysuria, urinary frequency or urgency, lightheadedness, dizziness, headache, memory loss, rash, abnormal bruising or bleeding, imbalance , focal weakness, arthralgias or myalgias, back or neck pain, night sweats, or allergy symptoms. The review of systems is otherwise negative other than for that already noted above, and at least 10 systems have been reviewed. Physical Exam Vital Signs Date Time Temp Pulse Resp B/P Pulse Ox O2 Delivery O2 Flow Rate FiO2 01/20/17 01:28 78 138/76 01/20/17 00:00 Room Air 01/20/17 00:00 Room Air 01/19/17 23:42 37.0 81 17 169/78 92 01/19/17 23:27 86 18 167/71 93 Room Air 01/19/17 22:39 87 01/19/17 21:05 93 20 166/97 93 Room Air 01/19/17 18:23 94 20 165/87 95 Room Air 01/19/17 17:20 93 01/19/17 17:15 Room Air 01/19/17 15:42 36.9 104 20 151/78 94 Room Air The patient is awake, well-developed and adequately nourished, alert and oriented 3, normocephalic and atraumatic, lying in bed and in no acute distress. HEENT--PERRL, EOMI, mucous membranes and oropharynx dry. Neck--supple, no JVD or bruits, thyroid normal, trachea midline, no adenopathy. Heart--normal S1 and S2, no extra beats, no murmurs, rubs or gallops. Lungs--clear bilaterally, no respiratory distress, no accessory muscle use. Abdomen--decreased bowel sounds, peristomal hernia Extremities--no cyanosis, clubbing.. With trace to 1+ pitting edema left lower extremity Dermatologic--normal skin turgor, normal color, warm and dry, no abnormal lymph nodes, no rash. Neurologic--cranial nerves II through XII grossly intact, motor and sensory examination normal. Psychiatric--normal affect. Diagnostics Laboratory Results Results Past 24 Hours Test 01/19/17 17:15 01/19/17 19:09 01/20/17 02:26 01/20/17 03:54 Range/Units White Blood Count 6.76 4.98 4.8-10.8 K/uL Red Blood Count 5.21 4.56 4.2-5.4 M/uL Hemoglobin 9.4 7.9 8.2 12.0-16.0 g/dL Hematocrit 29.5 25.8 26.4 37-47 % Mean Corpuscular Volume 56.6 56.6 80-100 fL Mean Corpuscular Hemoglobin 18.0 17.3 25-34 pg Mean Corpuscular Hemoglobin Concent 31.9 30.6 32-36 g/dl Platelet Count 465 391 130-400 K/uL Mean Platelet Volume 8.9 8.9 7.4-10.4 fL Neutrophils (%) (Auto) 72.4 63.5 % Lymphocytes (%) (Auto) 18.3 23.7 % Monocytes (%) (Auto) 7.8 10.6 % Eosinophils (%) (Auto) 0.9 1.6 % Basophils (%) (Auto) 0.3 0.4 % Neutrophils # (Auto) 4.89 3.16 1.4-6.5 K/uL Lymphocytes # (Auto) 1.24 1.18 1.2-3.4 K/uL Monocytes # (Auto) 0.53 0.53 0.11-0.59 K/uL Eosinophils # (Auto) 0.06 0.08 0-0.5 K/uL Basophils # (Auto) 0.02 0.02 0-0.2 K/uL RDW Standard Deviation 32.2 32.3 36.4-46.3 fL RDW Coefficient of Variation 15.8 15.7 11.5-14.5 % Immature Granulocyte % (Auto) 0.3 0.2 % Immature Granulocyte # (Auto) 0.02 0.01 0.00-0.02 K/uL Polychromasia 1+ Hypochromasia PRESENT Poikilocytosis PRESENT Microcytosis PRESENT PRESENT Ovalocytes 1+ 1+ Schistocytes OCCASIONAL Prothrombin Time 11.1 11.2 9.0-12.0 SECONDS Prothromb Time International Ratio 1.0 1.0 0.9-1.1 Activated Partial Thromboplast Time 25.7 31.1 21.0-31.0 SECONDS Partial Thromboplastin Ratio 1.0 1.2 Sodium Level 138 140 136-145 mmol/L Potassium Level 3.8 3.7 3.5-5.1 mmol/L Chloride Level 102 106 98-107 mmol/L Carbon Dioxide Level 26 25 21-32 mmol/L Anion Gap 10.0 9.0 3-11 mmol/L Blood Urea Nitrogen 12 12 7-18 mg/dl Creatinine 0.94 0.93 0.60-1.20 mg/dl Est Creatinine Clear Calc Drug Dose 31.8 32.1 ml/min Estimated GFR () 65.0 65.9 Estimated GFR (Non- 56.1 56.8 BUN/Creatinine Ratio 12.7 13.3 10-20 Random Glucose 102 97 70-99 mg/dl Calcium Level 8.2 7.6 8.5-10.1 mg/dl Magnesium Level 1.8 1.8 1.8-2.4 mg/dl Total Bilirubin 0.5 0.2-1 mg/dl Direct Bilirubin 0.2 0-0.2 mg/dl Aspartate Amino Transf (AST/SGOT) 16 15-37 U/L Alanine Aminotransferase (ALT/SGPT) 12 12-78 U/L Alkaline Phosphatase 85 45-117 U/L Troponin I < 0.015 0-0.045 ng/ml Total Protein 7.2 6.4-8.2 gm/dl Albumin 2.5 3.4-5.0 gm/dl Lipase 157 73-393 U/L Thyroid Stimulating Hormone (TSH) 6.210 0.300-4.500 uIu/ml Urine Color YELLOW Urine Appearance CLOUDY CLEAR Urine pH 5.0 4.5-7.5 Urine Specific [place] 1.011 1.000-1.030 Urine Protein NEG NEG Urine Glucose (UA) NEG NEG Urine Ketones NEG NEG Urine Occult Blood NEG NEG Urine Nitrite NEG NEG Urine Bilirubin NEG NEG Urine Urobilinogen NEG NEG Urine Leukocyte Esterase NEG NEG Urine WBC (Auto) 1-5 0-5 /hpf Urine RBC (Auto) 0-4 0-4 /hpf Urine Hyaline Casts (Auto) 1-5 0-5 /lpf Urine Epithelial Cells (Auto) 10-20 0-5 /lpf Urine Bacteria (Auto) NEG NEG Microbiology Results 01/19/17 Urine Culture, Received Pending Diagnostic Radiology Patient Name: ELADIA LIND Unit Number: [id number] Dictated: 01/19/171803 Transcribed: 01/19/171803 JA Printed Date/Time: [~ rep prt dt]/[~ rep prt tm] [~ rep ct labl] - [~ rep ct ivnm] [facility] [place] [address] Dictated: 01/19/171803 Transcribed: 01/19/171803 JA Printed Date/Time: [~ rep prt dt]/[~ rep prt tm] [~ rep ct labl] - [~ rep ct ivnm] [~ rep ct add3]] CT OF THE ABDOMEN AND PELVIS WITHOUT CONTRAST CLINICAL HISTORY: Diffuse abdominal pain and vomiting. COMPARISON STUDY: CT of the abdomen and pelvis November 30, 2016. TECHNIQUE: Axial images of the abdomen and pelvis were obtained without IV contrast. Images were reviewed in the axial, sagittal, and coronal planes. FINDINGS: Visualized portions of the lower chest demonstrate increase in size of a moderate right pleural effusion. There is a small left pleural effusion. There are mildly enlarged bilateral internal mammary chain lymph nodes. Several cardiophrenic angle nodes have mildly increased in size since exam of November 30, 2016. A right hepatic lobe cyst is again noted. Evaluation of the abdomen and pelvis is suboptimal on this unenhanced exam. There is no pneumatosis, free air or portal venous gas. A moderate amount of ascites has increased since exam of April. Unenhanced images of the spleen, adrenal glands, kidneys and pancreas are unremarkable. There is no hydronephrosis. Multiple enlarged retroperitoneal lymph nodes have mildly increased in size since prior exam. An index left common iliac node measures 2.4 x 1.4 cm. This node previously measured 2.2 x 1.3 cm. A few mildly enlarged left a little lymph nodes have increased in size. A hypodense masslike abnormality posterior to the uterus and inferior to the sacrum and coccyx has increased in size since prior exam. This now measures approximately 8.4 x 5.6 cm. Endometrial thickening shown on prior exam is less conspicuous on this examination. There is mild small bowel dilatation. A left lower quadrant parastomal hernia containing ascites and bowel is noted but this does not result in the bowel dilatation. The findings suggest a partial small bowel obstruction. Peritoneal nodularity has increased since prior examination of November 30, 2016. Fractures of the bilateral sacral ala and right pubic ring are noted IMPRESSION: 1. Findings suggestive of progressive metastatic disease within the abdomen and pelvis, including peritoneal carcinomatosis and progression of lymphadenopathy since prior exam of April. Small to moderate ascites, increased since prior exam. 2. Mild dilatation of the proximal to mid small bowel. A definite transition point is not identified although the findings suggest a partial small bowel obstruction. 3. Moderate right and small left pleural effusions, increased since prior exam. 4. Increase in size of the hypodense mass-like abnormality, located inferior to the sacrum and coccyx and posterior to the uterus since prior CT. This finding is indeterminate although may reflect a neoplastic process. A fluid collection could appear similar. 5. Suboptimal evaluation of the abdomen and pelvis given the lack of IV and oral contrast. 6. Left lower quadrant parastomal hernia which does not result in the bowel obstruction. Electronically signed by: Kendall Knight M.D. 01/19/2017 6:21 PM Dictated Date/Time: 01/19/2017 6:04 PM The status of this report is Signed. Draft = Not yet reviewed or approved by Radiologist. Signed = Reviewed and approved by Radiologist. <AttendingPhy></AttendingPhy> <FamilyPhy>Erick Stewart M.D.</FamilyPhy> < PrimaryPhy>Erick Stewart M.D.</PrimaryPhy> <UnitNumber>[id number]</ UnitNumber> <VisitNumber>[id number]</VisitNumber> <PatientName>ELADIA LIND< /PatientName> <DateOfBirth>1935</DateOfBirth> <Location>[facility]</Location> < ServiceDate>01/19/17</ServiceDate> <MNE>ESINDI</MNE> <OrderingPhy>Elmer Dubon MD</OrderingPhy> <OrderingPhyMNE>f rep ord dr clark</OrderingPhyMNE> < DictatingPhyMNE>f rep dict dr clark</DictatingPhyMNE> <CCListMNE>f rep ct eduardo</ CCListMNE> <AdmittingPhyMNE>f pt admit dr clark</AdmittingPhyMNE> <AttendingPhyMNE >f pt attend dr clark</AttendingPhyMNE> <ConsultingPhyMNE>f pt consult dr clark</ConsultingPhyMNE> <FamilyPhyMNE>f pt fam dr clark</FamilyPhyMNE> <OtherPhyMNE>f pt other dr clark</OtherPhyMNE> < PrimaryPhyMNE>f pt prim care dr clark</PrimaryPhyMNE> <ReferringPhyMNE>f pt referring dr clark</ReferringPhyMNE> Patient Name: ELADIA LIND Unit Number: [id number] Dictated: 01/19/171820 Transcribed: 01/19/171820 JA Printed Date/Time: [~ rep prt dt]/[~ rep prt tm] [~ rep ct labl] - [~ rep ct ivnm] [facility] [place] [address] Dictated: 01/19/171820 Transcribed: 01/19/171820 JA Printed Date/Time: [~ rep prt dt]/[~ rep prt tm] [~ rep ct labl] - [~ rep ct ivnm] LEFT LOWER EXTREMITY VENOUS DOPPLER CLINICAL HISTORY: Left lower leg swelling. COMPARISON STUDY: Bilateral lower extremity venous Doppler December 26, 2016 TECHNIQUE: Sonography of the deep venous system of the left lower extremity was performed. Compression and augmentation were evaluated. FINDINGS: There is nonocclusive thrombus within the left common femoral vein as well as the left profunda vein. This was not evident on prior exam. No additional sites of deep venous thrombus were identified within the left lower extremity. Left lower extremity edema was noted. 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 Electronically signed by: Kendall Knight M.D. 01/19/2017 6:23 PM Dictated Date/Time: 01/19/2017 6:21 PM The status of this report is Signed. Draft = Not yet reviewed or approved by Radiologist. Signed = Reviewed and approved by Radiologist. <AttendingPhy></AttendingPhy> <FamilyPhy>Erick Stewart M.D.</FamilyPhy> < PrimaryPhy>Erick Stewart M.D.</PrimaryPhy> <UnitNumber>[id number]</ UnitNumber> <VisitNumber>[id number]</VisitNumber> <PatientName>ELADIA LIND< /PatientName> <DateOfBirth>1935</DateOfBirth> <Location>[facility]</Location> < ServiceDate>01/19/17</ServiceDate> <MNE>ESINDI</MNE> <OrderingPhy>Elmer Dubon MD</OrderingPhy> <OrderingPhyMNE>f rep ord dr clark</OrderingPhyMNE> < DictatingPhyMNE>f rep dict dr clark</DictatingPhyMNE> <CCListMNE>f rep ct mne</ CCListMNE> <AdmittingPhyMNE>f pt admit dr clark</AdmittingPhyMNE> <AttendingPhyMNE >f pt attend dr clark</AttendingPhyMNE> <ConsultingPhyMNE>f pt consult dr clark</ConsultingPhyMNE> <FamilyPhyMNE>f pt fam dr clark</FamilyPhyMNE> <OtherPhyMNE>f pt other dr clark</OtherPhyMNE> < PrimaryPhyMNE>f pt prim care dr clark</PrimaryPhyMNE> <ReferringPhyMNE>f pt referring dr clark</ReferringPhyMNE> Patient Name: ELADIA LIND Unit Number: [id number] Dictated: 01/19/172126 Transcribed: 01/19/172126 GENI Printed Date/Time: [~ rep prt dt]/[~ rep prt tm] [~ rep ct labl] - [~ rep ct ivnm] [facility] Radiology Department [place] [id number] Dictated: 01/19/172126 Transcribed: 01/19/172126 GENI Printed Date/Time: [~ rep prt dt]/[~ rep prt tm] [~ rep ct labl] - [~ rep ct ivnm] [~ rep ct add3]] CT ANGIOGRAPHY OF THE CHEST, PULMONARY EMBOLUS PROTOCOL CLINICAL HISTORY: Shortness of breath. Deep venous thrombus. COMPARISON STUDY: Chest CT September 10, 2015. TECHNIQUE: Following IV administration of 81 mL of [id number], helical axial images of the chest were obtained utilizing the pulmonary embolus protocol. Maximal intensity projections and sagittal and coronal reformats were viewed on an independent 3D workstation. IV contrast was administered without complication. CT DOSE: 316.35 mGy.cm FINDINGS: There are several segmental pulmonary emboli within the left lower lobe. No central pulmonary embolus is present. The heart is mildly enlarged. There is extensive coronary artery calcification. Small left and moderate sized right pleural effusions are present. There is extensive right lower lobe airspace opacity with volume loss which likely reflects compressive atelectasis. Groundglass opacities are noted within the lungs. There is no pneumothorax. Several enlarged cardiophrenic angle nodes are again noted. Findings suggestive of peritoneal carcinomatosis are better depicted on head CT performed earlier today. Moderate abdominal ascites is noted. IMPRESSION: 1. Several segmental pulmonary emboli within the left lower lobe. 2. Moderate right and small left pleural effusions. Extensive right lower lobe airspace opacity with volume loss suggests compressive atelectasis. 3. Moderate abdominal ascites. Findings suggestive of peritoneal carcinomatosis and upper abdominal lymphadenopathy, better depicted on CT performed earlier today. Electronically signed by: Kendall Knight M.D. 01/19/2017 9:37 PM Dictated Date/Time: 01/19/2017 9:27 PM The status of this report is Signed. Draft = Not yet reviewed or approved by Radiologist. Signed = Reviewed and approved by Radiologist. <AttendingPhy></AttendingPhy> <FamilyPhy>Erick Stewart M.D.</FamilyPhy> < PrimaryPhy>Erick Stewart M.D.</PrimaryPhy> <UnitNumber>[id number]</ UnitNumber> <VisitNumber>[id number]</VisitNumber> <PatientName>ELADIA LIND< /PatientName> <DateOfBirth>1935</DateOfBirth> <Location>[facility]</Location> < ServiceDate>01/19/17</ServiceDate> <MNE>ESINDI</MNE> <OrderingPhy>Az Skaggs M.D.</OrderingPhy> <OrderingPhyMNE>f rep ord dr clark</OrderingPhyMNE> < DictatingPhyMNE>f rep dict dr clark</DictatingPhyMNE> <CCListMNE>f rep ct aureliae</ CCListMNE> <AdmittingPhyMNE>f pt admit dr clark</AdmittingPhyMNE> <AttendingPhyMNE >f pt attend dr clark</AttendingPhyMNE> <ConsultingPhyMNE>f pt consult dr clark</ConsultingPhyMNE> <FamilyPhyMNE>f pt fam dr clark</FamilyPhyMNE> <OtherPhyMNE>f pt other dr clark</OtherPhyMNE> < PrimaryPhyMNE>f pt prim care dr clark</PrimaryPhyMNE> <ReferringPhyMNE>f pt referring dr clark</ReferringPhyMNE> EKG EKG shows normal sinus rhythm at 97 bpm, there are no acute ST-T changes. Impression Assessment and Plan Progressive metastatic disease within the abdomen and pelvis, including peritoneal carcinomatosis and progression of lymphadenopathy, small to moderate ascites increased since prior exam. Additional findings suggesting a partial small bowel obstruction. The patient will be admitted to the medical surgical floor. She'll be kept nothing by mouth, Protonix 40 mg IV daily, Zofran 4 mg IV every 6 hours when necessary, Phenergan 12.5 mg IV every 6 hours when necessary. She does not have a local oncologist, and will therefore consult Dr. Hernandez, or other oncologist from the local group. If she were to require a surgical correction, this situation will be complicated by the presence of DVT and PE. Surgery may not be an option with progression of the metastatic disease. Colon cancer status post colostomy, with parastomal hernia/recently diagnosed uterine cancer--progression of metastases as noted above, with origin to be determined by oncology as to whether the primary is colon or uterine. Left lower extremity DVT/multiple subsegmental pulmonary emboli left lower lobe- -the patient will be placed on IV heparin for now. I did discuss with family that if she were to undergo surgery in the future, that she may require an IVC filter. If she is to undergo any other procedure such as paracentesis, the heparin or other form of anticoagulation may need to be held at that time. Hypertension--continue carvedilol 3.125 mg by mouth twice a day with hold parameters. Hypothyroidism--change levothyroxine sodium 88 g by mouth daily to 44 g IV daily. Glaucoma --continue Travatan Z , 1 drop OPB at bedtime. Level of Care Med/Surg Advanced Directives Existing Living Will: Yes Existing Power of Scoreboard Operator: Yes VTE Prophylaxis VTE Risk Assessment Done? Y/N: Yes Risk Level: High Given or contraindicated: Unfractionated heparin SQ Social Service Consult Cancer Patient Under [place]
[2017-01-20 07:55] VITALS: BP 148/66; PULSE 79; TEMP 36.9; O2SAT 94
[2017-01-20] MEDS: LEVOTHYROXINE SODIUM INJ 44 MCG in SYRINGE 0 ML IV SCH (08:47)
--- NOTE | 2017-01-20 09:21 | ONCOLOGY CONSULTATION ---
DATE OF CONSULTATION: 01/20/2017 REASON FOR CONSULTATION: Recent diagnosis of uterine cancer is an 81-year-old female patient with new diagnosis of left lower extremity DVT and partial bowel obstruction. HISTORY OF PRESENT ILLNESS: Eva is a pleasant 81-year-old female patient who presented to [facility] with worsening abdominal pain that began at 5:00 a.m. this morning. Apparently, Eva was recently diagnosed with uterine cancer under the care of Dr. Ashby at the [facility]. At that time, Dr. Ashby was contemplating whether abdominal hysterectomy would be appropriate in Eva, but after presenting her case to tumor board and discovery of regional lymphadenopathy, he wished to see her in followup to further discuss. In fact, Eva had a followup appointment either today or tomorrow, I cannot recall exactly. CT scan of the abdomen and pelvis done on admission revealed findings suggestive of progressive metastatic disease within the abdomen and pelvis, including peritoneal carcinomatosis and progression of lymphadenopathy. There was also increased size hypodense mass-like abnormality located inferior to the sacrum and coccyx, posterior to the uterus, since prior CT. Because of left lower extremity swelling and pain, she underwent Doppler examination revealing a nonocclusive thrombus within the left common femoral and profunda veins and has been started on intravenous heparin. CTA of the chest also reveals several segmental pulmonary emboli within the left lower lobe as well as moderate abdominal ascites. PAST MEDICAL HISTORY: Includes colorectal cancer diagnosed 11 years ago and did receive adjuvant chemotherapy as well as radiation. She has no history of coronary artery disease, hypertension or diabetes mellitus. MEDICATIONS: Prior to admission, Biotin 5000 mcg p.o. every day, calcium with vitamin D 1 tablet p.o. every day, carvedilol 3.125 mg p.o. b.i.d., cholecalciferol 2000 units p.o. every day, cyanocobalamin 1500 mcg p.o. every day, levothyroxine 88 mcg p.o. every day, Protonix 40 mg p.o. every day, , Travatan 1 drop ophthalmic at bedtime. ALLERGIES: No known drug allergies. SOCIAL HISTORY: The patient is , lives with her family. She is retired. Nonsmoker, nondrinker. FAMILY HISTORY: Positive for hypertension, diabetes, heart disease and lung disease. REVIEW OF SYSTEMS: CONSTITUTIONAL: Denies fevers, chills or night sweats. She is not anorexic or losing weight but does describe dysgeusia. SKIN: No rashes or lesions. No history of dermatosis. HEENT: Negative for headaches, lightheadedness or dizziness. No visual or hearing deficits. No sinus symptoms, sore throat or dysphagia. LYMPH: No history of lymphadenopathy or lymphoproliferative disorder. CARDIAC: No current angina or palpitations. No history of coronary artery disease. PULMONARY: No history of COPD. No shortness of breath, dyspnea or orthopnea. Positive CTA for pulmonary emboli. ABDOMEN: Positive for lower abdominal and pelvic pain. No nausea or vomiting. No diarrhea or constipation, hematochezia or melena stools. GENITOURINARY: No hematuria, dysuria, urinary incontinence. PSYCHIATRIC: Negative for anxiety, depression or psychosis. ENDOCRINE: Negative for diabetes. Positive for hypothyroidism. NEUROLOGIC: Negative for seizure, stroke or migraine headaches. HEMATOLOGIC: Positive for microcytic anemia. PHYSICAL EXAMINATION: GENERAL: Very pleasant 81-year-old female patient in no acute distress. VITAL SIGNS: Temperature 36.9, pulse 79, respirations 17, blood pressure 148/66. SKIN: Warm, dry, noncyanotic, without petechia, rash or ecchymosis. HEENT: Head is atraumatic, normocephalic. Eyes: PERRLA, EOMI. Sclerae nonicteric. No conjunctival injection. Nares are patent without rhinorrhea or discharge. Throat is clear. Tongue is midline. Mucous membranes are moist. NECK: Supple without JVD or thyromegaly. LYMPH: No cervical, supraclavicular, axillary or inguinal palpable nodes. HEART: Regular rate and rhythm. No clicks, rubs, murmurs or gallops. LUNGS: Clear to auscultation bilaterally. ABDOMEN: Functional colostomy. Slight distention. Bowel sounds are surprisingly quite active. No rigidity or guarding. No palpable hepatosplenomegaly. EXTREMITIES: Trace peripheral edema bilaterally. Calf circumference is slightly larger on the left than right. Pulses are equal otherwise. MUSCULOSKELETAL: Strength equal. NEUROLOGIC: She is awake, alert and oriented x3. Cranial nerves II-XII are intact. No gross motor or sensory deficits are noted. LABORATORY DATA: WBC count 4980, hemoglobin 7.9, MCV 56.6, platelet count 391,000. Sodium 140, potassium 3.7, chloride 106, carbon dioxide 25, BUN 12, creatinine 0.93. IMPRESSION: 1. Progressive uterine cancer. 2. Left lower extremity deep vein thrombosis/pulmonary embolism. 3. Hypertension. 4. Hypothyroidism. 5. History of colorectal cancer. PLAN: Eva is a pleasant but unfortunate 81-year-old female patient who was recently diagnosed with what was thought to be locally advanced uterine cancer. She was under the care of Dr. Ashby at the [facility], underwent biopsies confirming the diagnosis. After her case was presented to [place]'s tumor board and she underwent further radiographic investigation, comfirmed she suffered from more extensive disease. Apparently, biopsies were obtained from a lymph node in [place]. I am not in possession of the official report and hopefully we can gather this information up to be able to discuss therapeutic options for Eva. I suspect based on her current radiographs, however, she will require salvage chemotherapy as surgery is no longer an option in her case. Agree with anticoagulation and subsequent transition to Coumadin. Once she stabilizes medically, we will arrange for outpatient followup at the [facility] to discuss therapeutic options. Thank you very much for allowing us to participate in her care. If you have any questions or concerns, feel free to contact me at any time. AZUL
[2017-01-20 10:22] LABS: PARTIAL THROMBOPLASTIN RATIO 1.6
[2017-01-20] MEDS: ACETAMINOPHEN IV 100 ML IV PRN (10:27)
[2017-01-20 10:41] VITALS: O2SAT 94
[2017-01-20] MEDS ORDERED: HEPARIN IV BOLUS 2,000 UNIT in SYRINGE 0 ML IV ONE (11:00)
[2017-01-20] MEDS: PANTOprazole INJ 40 MG in SYRINGE 0 ML IV SCH (11:23)
[2017-01-20 13:52] LABS: POIKILOCYTOSIS PRESENT
[2017-01-20 15:15] VITALS: BP 159/74; PULSE 75; TEMP 36.9; O2SAT 94
--- NOTE | 2017-01-20 15:50 | Progress Note ---
Progress Note Date of Service Jan 20, 2017. Progress Note H&P reviewed. Imaging studies reviewed. Patient NPO, on IVF and heparin gtt. AWaiting documentation, biopsy results from [place]. Heme/onc consultation noted and appreciated.
[2017-01-20 17:51] LABS: PARTIAL THROMBOPLASTIN RATIO 1.8
[2017-01-20] MEDS ORDERED: ALBUT/IPRATROP 3MG/0.5MG NEB 3 ML VIAL INH ONE (21:00)
[2017-01-20 21:31] VITALS: PULSE 78; O2SAT 96
[2017-01-20 23:43] VITALS: BP 138/78; PULSE 94; TEMP 36.9; O2SAT 92
[2017-01-21] MEDS: HEPARIN 25,000 UNIT/500ML D5W 500 ML IV PRN ×4 (00:03→09:33)
[2017-01-21] MEDS: LACTATED RINGER'S 1000ML 1,000 ML IV SCH ×2 (01:40→11:07)
[2017-01-21 07:30] VITALS: BP 169/77; PULSE 88; TEMP 36.7; O2SAT 92
[2017-01-21] MEDS: ACETAMINOPHEN IV 100 ML IV PRN (07:43)
[2017-01-21 08:34] LABS: BASO % 0.2 %; BASO ABS # 0.01 K/uL (0-0.2); EOS % 3.4 %; IG% 0.2 %; LYMPH % 21.8 %; LYMPH ABS # 1.15 K/uL (1.2-3.4); MEAN CELL VOLUME 54.9 fL (80-100); MEAN CORPUSCULAR HEMOGLOBIN 17.5 pg (25-34); MEAN CORPUSCULAR HGB CONC 31.9 g/dl (32-36); MEAN PLATELET VOLUME 9.4 fL (7.4-10.4); MONO % 8.9 %; NEUT % 65.5 %; PLATELET COUNT 458 K/uL (130-400); RED BLOOD COUNT 4.92 M/uL (4.2-5.4); WHITE BLOOD COUNT 5.27 K/uL (4.8-10.8)
[2017-01-21 08:46] LABS: PARTIAL THROMBOPLASTIN RATIO 1.3; PROTHROMBIN TIME (PATIENT) 11.1 SECONDS (9.0-12.0)
[2017-01-21 09:02] LABS: BUN/CREATININE RATIO 12.7 (10-20); CALCIUM 8.2 mg/dl (8.5-10.1); CREATININE 0.82 mg/dl (0.60-1.20); MAGNESIUM 1.9 mg/dl (1.8-2.4); POTASSIUM 3.7 mmol/L (3.5-5.1)
[2017-01-21 09:05] LABS: COMPLETE YES; MICROCYTOSIS PRESENT; OVALOCYTES 1+; POIKILOCYTOSIS PRESENT
[2017-01-21] MEDS ORDERED: HEPARIN IV BOLUS 3,000 UNIT in SYRINGE 0 ML IV SCH (09:15)
[2017-01-21] MEDS: PROMETHAZINE HCL INJ 12.5 MG in SODIUM CHLORIDE 0.9% 50ML 50 ML IV PRN (09:34)
--- NOTE | 2017-01-21 09:49 | Hematology/Oncology Prog Note ---
Hematology/Onc Progress Note Date of Service Jan 21, 2017. Diagnoses Metastatic endometrial carcinoma Pulmonary emboli Right pleural effusion Mild anemia Ascites Possible small bowel obstruction Medications Medications Administered Medications (Trade) Dose Ordered Sig/Blanquita Route Start Time Stop Time Status Last Admin Dose Admin Sodium Chloride 1,000 ml @ 125 mls/hr Q8H STAT IV 01/19/17 16:32 01/19/17 23:41 DC 01/19/17 18:03 125 MLS/HR Sodium Chloride (Nss 500ml) 500 ml @ 999 mls/hr Q31M STAT IV 01/19/17 17:10 01/19/17 17:40 DC 01/19/17 18:04 999 MLS/HR Ondansetron HCl (Zofran 8mg Iv) 8 mg NOW STAT IV 01/19/17 18:35 01/19/17 18:37 DC 01/19/17 18:42 8 MG Ondansetron HCl 4 mg 4 mg Q6H PRN IV 01/19/17 20:00 02/18/17 19:59 01/21/17 01:37 4 MG Acetaminophen 100 ml @ 400 mls/hr Q8H PRN IV 01/19/17 20:00 02/18/17 19:59 01/21/17 07:43 400 MLS/HR Promethazine HCl/ Sodium Chloride (Phenergan Inj/ Nss 50ml) 50.5 ml @ 202 mls/hr Q4H PRN IV 01/19/17 20:00 02/18/17 19:59 01/21/17 09:34 202 MLS/HR Carvedilol (Coreg Tab) 3.125 mg BID PO 01/19/17 21:00 02/18/17 20:59 01/20/17 21:15 3.125 MG Travoprost 1 drops 1 drops HS OPB 01/19/17 21:00 02/18/17 20:59 01/20/17 21:15 1 DROPS Levothyroxine Sodium 44 mcg/ Syringe 2.2 ml @ 2 mls/min DAILY@09 IV 01/20/17 09:00 02/19/17 08:59 01/20/17 08:47 2 MLS/MIN Pantoprazole Sodium/Syringe (Protonix Inj/ Syringe) 10 ml @ 5 mls/min DAILY@11 IV 01/20/17 11:00 02/19/17 10:59 01/20/17 11:23 5 MLS/MIN Heparin Sodium/ Dextrose 60019 unit 25,000 unit STK-MED ONCE .ROUTE 01/19/17 20:18 01/19/17 20:20 DC 01/19/17 20:25 25,000 UNIT Heparin Sodium/ Dextrose 500 ml @ 17 mls/hr Q24H PRN IV 01/19/17 21:30 02/18/17 21:29 01/21/17 09:33 17 MLS/HR Heparin Sodium (Porcine) 3000 unit/Syringe 3 ml @ 10 mls/min NOW STAT IV 01/20/17 03:21 01/20/17 03:22 DC 01/20/17 03:26 10 MLS/MIN Lactated Ringer's 1,000 ml @ 100 mls/hr Q10H IV 01/20/17 06:15 02/19/17 06:14 01/21/17 01:40 100 MLS/HR Heparin Sodium (Porcine)/Syringe (Heparin Iv Bolus/Syringe) 2 ml @ 10 mls/min TODAY@1100 ONCE IV 01/20/17 11:00 01/20/17 11:01 DC 01/20/17 11:21 10 MLS/MIN Albuterol/ Ipratropium 3 ml 3 ml 2100 ONCE INH 01/20/17 21:00 01/20/17 21:01 DC 01/20/17 21:24 3 ML Heparin Sodium (Porcine)/Syringe (Heparin Iv Bolus/Syringe) 3 ml @ 10 mls/min TODAY@0915 IV 01/21/17 09:15 01/21/17 10:00 01/21/17 09:32 10 MLS/MIN Subjective She appears comfortable. She does get short of breath however with most any movement. Currently is on heparin. She denies chest pain. She does state that she is not really able to eat much because of nausea vomiting. Her pain seems fairly well controlled currently.. Review of Systems: Constitutional: Negative for weight loss, night sweats, or fever Eyes: Negative for event change of vision ENT: Negative for epistaxis, nasal discharge, sore throat, or deafness Cardiovascular: Negative for chest pain, palpitations, dizziness, diaphoresis Respiratory: History of shortness of breath without purulent cough or fever Gastrointestinal: Positive for abdominal distention with nausea vomiting. History of colon carcinoma status post resection in 2006 and status post chemotherapy as well as radiation therapy for her node-positive disease according to the family. Colostomy is in place Integumentary (skin): Negative for rash or jaundice discoloration Genitourinary: Negative for urinary frequency, hematuria, or dysuria Neurological: Negative for weakness, seizure activity, headache, or dizziness Lymphatic/Hematologic: Negative for petechiae, bleeding or new adenopathy Musculoskeletal: Negative for new joint or back pain Allergic/Immunologic: Negative for unusual rash or pruritis. Vital Signs Vital Signs Past 12 Hours Date Time Temp Pulse Resp B/P Pulse Ox O2 Delivery O2 Flow Rate FiO2 01/21/17 07:30 36.7 88 15 169/77 92 Room Air 01/21/17 01:15 Room Air 01/20/17 23:43 36.9 94 18 138/78 92 Room Air Physical Exam Constitutional: vitals are stable. Eyes: Eyes are LAM EOMI without conjuctival erythema or icterus. ENT: External examination was negative for masses. Neck: Negative for masses or palpable thyromegaly Respiratory: Lung sounds were generally clear bilaterally Cardiovascular: Heart was RRR without significant murmur, gallops aoe rubs Gastrointestinal: No palpable hepatic or splenomegaly. The abdomen is distended. Bowel sounds are normal to slightly increased. Colostomy is in place Lymphatic system: there was no palpable peripheral lymphadenopathy Musculoskeletal System: The musculoskeletal system seemed concordant with age. Skin: The skin was negative for jaundice. Neurologic exam: The exam was negative for any focal findings. Deep tendon reflexes were equal and symmetrical. Psychiatric exam: Was essentially negative with normal mood and effect. Breast exam: Not done Extremities: Negative for edema Laboratory Last 24 Hours Test 01/20/17 17:15 01/21/17 07:33 Activated Partial Thromboplast Time 47.7 SECONDS 33.0 SECONDS Partial Thromboplastin Ratio 1.8 1.3 White Blood Count 5.27 K/uL Red Blood Count 4.92 M/uL Hemoglobin 8.6 g/dL Hematocrit 27.0 % Mean Corpuscular Volume 54.9 fL Mean Corpuscular Hemoglobin 17.5 pg Mean Corpuscular Hemoglobin Concent 31.9 g/dl Platelet Count 458 K/uL Mean Platelet Volume 9.4 fL Neutrophils (%) (Auto) 65.5 % Lymphocytes (%) (Auto) 21.8 % Monocytes (%) (Auto) 8.9 % Eosinophils (%) (Auto) 3.4 % Basophils (%) (Auto) 0.2 % Neutrophils # (Auto) 3.45 K/uL Lymphocytes # (Auto) 1.15 K/uL Monocytes # (Auto) 0.47 K/uL Eosinophils # (Auto) 0.18 K/uL Basophils # (Auto) 0.01 K/uL RDW Standard Deviation 31.1 fL RDW Coefficient of Variation 15.8 % Immature Granulocyte % (Auto) 0.2 % Immature Granulocyte # (Auto) 0.01 K/uL Poikilocytosis PRESENT Microcytosis PRESENT Ovalocytes 1+ Prothrombin Time 11.1 SECONDS Prothromb Time International Ratio 1.0 Sodium Level 137 mmol/L Potassium Level 3.7 mmol/L Chloride Level 104 mmol/L Carbon Dioxide Level 21 mmol/L Anion Gap 12.0 mmol/L Blood Urea Nitrogen 10 mg/dl Creatinine 0.82 mg/dl Est Creatinine Clear Calc Drug Dose 36.4 ml/min Estimated GFR () 76.7 Estimated GFR (Non- 66.2 BUN/Creatinine Ratio 12.7 Random Glucose 77 mg/dl Calcium Level 8.2 mg/dl Magnesium Level 1.9 mg/dl Assessment & Plan Biopsy of a periaortic lymph node done at [place] was consistent with adenocarcinoma and consistent with metastatic endometrial carcinoma. Her scans reviewed with the family members today. She does have right pleural effusion. She has signs and symptoms of what might be a bowel obstruction. She currently is on heparin for the pulmonary emboli and left common femoral thrombus. I reviewed with the family that ordinarily one stable she will be receiving chemotherapy such as Taxol and carboplatinum although the drugs are reviewed in detail. Provided she did well with the chemotherapy then double surgery for the endometrial carcinoma with take place probably followed by further doublet chemotherapy. However she needs to be stable. The potential bowel obstruction is an issue. The family would like the patient transferred to [place]. As reviewed also with the hospitalist. The patient would like to have the chemotherapy administered locally and I will see that she will have a follow-up in our clinic in the next 2-3 weeks however the family knows to be in contact with our clinic should that be delayed. I did give a card with a contact number of our clinic to the patient's family.
[2017-01-21] MEDS: LEVOTHYROXINE SODIUM INJ 44 MCG in SYRINGE 0 ML IV SCH (09:52)
[2017-01-21] MEDS: CARVEDILOL 3.125 MG TAB PO SCH (09:52)
[2017-01-21] MEDS: PANTOprazole INJ 40 MG in SYRINGE 0 ML IV SCH (10:34)
--- NOTE | 2017-01-21 10:58 | Discharge Summary ---
Discharge Summary Date of Service Jan 21, 2017. Discharge Summary Admission Date: Jan 19, 2017 at 20:03 Discharge Disposition: Acute care facility Principal Diagnosis: DVT/PE Immunizations: Have You Had Influenza Vaccine: Unknown History of Tetanus Vaccine?: Unknown History of Pneumococcal: Unknown History of Hepatitis B Vaccine: Unknown Hospital Course 81 yo F pmh colon ca s/p ostomy ~9 y/a, recently diagnosed with uterine cancer s/p LN biopsy at [place] admitted with abdominal pain and found to have partial small bowel obstruction. On CT, a hypodense mass was also found anterior to the coccyx. She was also found LLE swelling and a LE doppler revealed LLE DVT. A CTA was done which also showed left subsegmental PE. Patient was then started on heparin gtt. Due to patient's extensive ca history and her long-standing relationship with [place], it was decided that further management of her adenocarcinoma should be done by Dr. Ashby at [place]. Patient was accepted into his service and a transfer was arranged. On day of discharge, patient was still NPO with some flatus in the ostomy. No chest pain but did have some sob on minimal exertion. Vital Signs Date Time Temp Pulse Resp B/P Pulse Ox O2 Delivery O2 Flow Rate FiO2 01/21/17 12:03 36.9 80 18 171/83 94 Room Air nad, aox3 eomi, perrl s1 s2 rrr, no m/r/g ctab no w/r/r abd soft ,nt/nd +BS LLE edema trace, no RLE edema Plan as above. Total Time Spent: Greater than 30 minutes This includes examination of the patient, discharge planning, medication reconciliation, and communication with other providers. Discharge Instructions Please refer to the electronic Patient Visit Report (Discharge Instructions) for additional information.
[2017-01-21 12:03] VITALS: BP 171/83; PULSE 80; TEMP 36.9; O2SAT 94
== END 2017-01-21 13:18 | disposition short-term general hospital (02) | DRG 754 ==
LOC: ENRESERVDT → ENRESERVTM → C.EDB 15:31 → C.MSW 20:03 → EDBEDREQSVC 21:10 → EDBEDREQ 21:10
PROVIDERS: ADMIT Hospitalist; ATTEND Internal Medicine
DX: C55 Malignant neoplasm of uterus, part unspecified (principal); I26.99 Other pulmonary embolism without acute cor pulmonale; I82.402 Acute embolism and thrombosis of unspecified deep veins of left lower extremity; C78.6 Secondary malignant neoplasm of retroperitoneum and peritoneum; C79.89 Secondary malignant neoplasm of other specified sites; J90 Pleural effusion, not elsewhere classified; R18.8 Other ascites; K56.60 Unspecified intestinal obstruction; Z85.038 Personal history of other malignant neoplasm of large intestine; I10 Essential (primary) hypertension; E03.9 Hypothyroidism, unspecified; H40.9 Unspecified glaucoma; D64.9 Anemia, unspecified; Z92.3 Personal history of irradiation; Z92.21 Personal history of antineoplastic chemotherapy; Z83.3 Family history of diabetes mellitus; Z82.49 Family history of ischemic heart disease and other diseases of the circulatory system